=== PATIENT | female | born 1935 | race Caucasian/White ===

== ENCOUNTER → 2016-11-23 | Outpatient (CLI) | payer MEDICARE ==
[2016-11-23 12:40] LABS: Basophils # (A) 0.1 k/uL (0-0.2); Basophils % (A) 2 %; CH 31.2; CHCM 33.2; Eosinophils # (A) 0.2 k/uL (0-0.7); Eosinophils % (A) 4 %; HCT 41.3 % (34.0-46.0); HDW 2.97; HGB 13.9 gm/dL (11.4-16.0); Luc # (Auto) 0.22; Luc % (Auto) 4; Lymphocytes # (A) 1.9 k/uL (1.0-4.8); Lymphocytes % (A) 34 %; MCH 31.7 pg (25.0-35.0); MCHC 33.6 g/dL (31.0-37.0); MCV 94.3 fL (80.0-100.0); Mean Platelet Volume 6.8; Monocytes # (A) 0.3 k/uL (0-1.0); Monocytes % (A) 5 %; Neutrophils # (A) 2.9 k/uL (1.3-7.7); Neutrophils % (A) 52 %; RBC 4.38 m/uL (3.80-5.40); RDW 13.7 % (11.5-15.5); WBC 5.6 k/uL (3.8-10.6); WBC (Perox) 5.74
[2016-11-23 14:11] LABS: Erythrocyte Sedimentation Rate 14 mm/hr (0-20)
[2016-11-23 19:32] LABS: Alternaria alternata IgE <0.10 kU/L; Aspergillus fumagatus IgE <0.10 kU/L; Cat Epith & Dander IgE <0.10 kU/L; Cladosporian herbarum IgE <0.10 kU/L; Dermato. farinae IgE <0.10 kU/L; Maple (Box Elder) IgE <0.10 kU/L; Orchard Grs(Cocksfoot) IgE <0.10 kU/L; Ragweed,Common IgE <0.10 kU/L
== END ==
LOC: LABWHC1 12:18
PROVIDERS: ATTEND Internal Medicine
DX: J30.9 Allergic rhinitis, unspecified (principal); R05 Cough
CPT/HCPCS: 36415; 82785; 85025; 85652; 86003

== ENCOUNTER 2017-01-31 11:52 | Day surgery (SDC) | payer MEDICARE, OTHER ==
[2017-01-25 10:54] VITALS: BMI 24.0
[~2017-01-31 11:52] MED LIST: LACTATED RINGERS 1,000 ML IV SCH
[2017-01-31] MEDS: PHENYLEPHRINE 10% OPHTH DROPS 5 ML BTL OP ONE ×3 (12:18→12:36)
[2017-01-31] MEDS: CYCLOPENTOLATE 1% OPHTH SOLN 2 ML BTL OP ONE ×3 (12:21→12:38)
[2017-01-31 12:22] VITALS: RESP 16; TEMP 96.8
[2017-01-31] MEDS: KETOROLAC 0.5% OPHTH DROPS 5 ML BTL OP ONE ×3 (12:23→12:41)
[2017-01-31] MEDS ORDERED: LIDOCAINE 1% 20 ML VIAL (10MG/ML) FOR IV START INTRADERMA ONE (12:34)
[2017-01-31] MEDS ORDERED: PROPOFOL 10 MG/ML 20 ML VIAL IV ONE (13:06)
[2017-01-31] MEDS ORDERED: TETRACAINE 0.5% OPHTH (PF) DROPS 4 ML BTL RIGHT EYE ONE (13:09)
[2017-01-31] MEDS ORDERED: BALANCED SALT IRRIG SOLN COMB2 15 ML IRRIG.SOLN INTRAOCULA ONE (13:16)
[2017-01-31] MEDS ORDERED: HYALURONATE SODIUM INTRAOCULAR 1 EACH SYRINGE (10MG/ML) INTRAOCULA ONE ×3 (13:16)
[2017-01-31] MEDS ORDERED: EPINEPHrine (PF) 0.5 ML in BALANCED SALT IRRIG SOLN COMB2 500 ML IRRIGATION ONE (13:18)
--- NOTE | 2017-01-31 13:49 | P.OP ---
Date of Procedure: 01/31/17 Procedure(s) Performed: PREOPERATIVE DIAGNOSIS: Cataract, right eye. Glaucoma, right eye. POSTOPERATIVE DIAGNOSIS: Cataract, right eye. Glaucoma right eye. OPERATION: Phacoemulsification cataract, right eye. I-stent placement, right eye. DESCRIPTION OF PROCEDURE: The patient was taken to the preoperative holding area. Intravenous Propofol was given so as to bring about adequate sedation. The following mixture was given for local anesthesia: 5 mL of 2% lidocaine, 5 mL of 0.75% Marcaine, and 1 mL of Wydase. Approximately 4 mL was injected in the retrobulbar space of the surgical eye. Additional 1 mL was then directed to the temporal area of the surgical eye. This was performed to allow adequate neurological block of the facial muscles. The patient was revived and then taken into the operative room. The patient was prepped and draped in the usual sterile manner for the operative eye. A lid speculum was put into position. The conjunctiva was resected back from the limbus in the 12 o'clock position. Bleeding was controlled with electrocautery. A #69 blade was then used and a half-thickness scleral incision approximately 1-mm posterior to the limbus was made on bare sclera. This was shelved in the clear cornea using a crescent knife. The steep axis of astigmatism was marked using a pre-inked corneal marking device. Next a 15-degree blade was used to make a stab incision at the 3 o'clock position at the corneolimbal interface. Keratome blade was then used and the superior wound was extended into the anterior chamber. Viscoelastic was injected into the anterior chamber and to maintain its form. Next, a cystotome was used and a continuous anterior capsulotomy was made without difficulty. Using a gonioprism for guidance, an I-stent was next placed into the inferior angle of the eye. Hydrodissection using a blunt cannula and BSS was performed. Phaco probe was then employed and a groove extending from 12 to 6 o'clock in the lens was created. A Cruz wand was used through the stab incision so as to perform a divide and conquer technique. Next an irrigation aspiration probe was utilized and any residual cortex was removed from the eye. Again, viscoelastic was injected into the anterior chamber. An Dinesh toric posterior chamber lens implant was placed in the cartridge and injected into the anterior chamber without difficulty. The Sinskey hook was utilized to spin the lens into position and this was again performed without any difficulty. The irrigation and aspiration probe was again employed and any residual viscoelastic was removed from the eye. Then BSS was injected into the limbal stab incision and the anterior chamber re- inflated. The conjunctiva was reapproximated using electrocautery. One drop of 0.25% Timoptic was placed over the corneal along with TobraDex ophthalmic ointment. Two sterile patches and a Perez eye shield were taped into position. The patient was transported to the recovery room in stable condition. Pathology: none sent Condition: stable Disposition: same day
[2017-01-31 14:15] VITALS: BP 133/63; PULSE 62
[2017-01-31] MEDS ORDERED: TIMOLOL 0.5% OPHTH SOLN (PF) 0.2 ML DROPERETTE OP ONE (23:00)
[2017-01-31] MEDS ORDERED: GENTAMICIN/PREDNISOL AC OPHTH OINT 3.5GM OPHTHALMIC ONE (23:00)
[2017-01-31] MEDS ORDERED: BUPIVACAINE (PF) 0.75% 5 ML, LIDOCAINE 4% (PF) 5 ML, HYALURONIDASE, HUMAN RECOMB 150 UNIT MISCELLANE ONE ×3 (23:00)
== END 2017-01-31 14:43 | disposition home or self-care (01) ==
LOC: OR 11:52
PROVIDERS: ATTEND Ophthalmology
DX: H26.9 Unspecified cataract (principal); H40.9 Unspecified glaucoma; J30.2 Other seasonal allergic rhinitis; J44.9 Chronic obstructive pulmonary disease, unspecified; Z87.891 Personal history of nicotine dependence; Z79.899 Other long term (current) drug therapy; Z79.52 Long term (current) use of systemic steroids
CPT/HCPCS: 0191T; 66984

== ENCOUNTER 2017-04-26 11:12 | Day surgery (SDC) | payer MEDICARE ==
[~2017-04-26 11:12] MED LIST changes: +DEXAMETHASONE SOD PHOSPHATE 10 MG/ML 1 ML VIAL IV ONE; +DEXAMETHASONE SOD PHOSPHATE 4 MG/ML 1 ML VIAL IV ONE; +FAMOTIDINE 20 MG/2 ML VIAL IV ONE; +ONDANSETRON 4 MG/2 ML VIAL IVP ONE; +ceFAZolin 1,000 MG in DEXTROSE/WATER 1 50ML.BAG IV ONE
[2017-04-26] MEDS: OXYMETAZOLINE 0.05% NASL SPRAY 1 SPRAY BOTTLE EA NOSTRIL ONE ×5 (12:35→12:55)
[2017-04-26] MEDS ORDERED: MIDAZOLAM 2 MG/2 ML VIAL IV ONE (13:11)
[2017-04-26] MEDS ORDERED: LIDOCAINE 1% INJ 10MG/ML (20 ML MDV) ONE (13:54)
[2017-04-26] MEDS ORDERED: PHENYLEPHRINE-0.9% NACL SYG 1 MG/10 ML SYRINGE ONE (13:54)
[2017-04-26] MEDS ORDERED: PROPOFOL 10 MG/ML 20 ML VIAL IV ONE (13:54)
[2017-04-26] MEDS ORDERED: fentaNYL (PF) 50 MCG/ML 2 ML AMP ONE (13:54)
[2017-04-26] MEDS ORDERED: SUCCINYLCHOLINE CHLORIDE 100 MG/5 ML SYR IV ONE (13:54)
[2017-04-26] MEDS ORDERED: LIDOCAINE 1%-EPI 1:100,000 20 ML VIAL SUBMUCOSAL ONE ×3 (14:05→14:09)
--- NOTE | 2017-04-26 14:46 | P.OP ---
Date of Procedure: 04/26/17 Preoperative Diagnosis: Deviated nasal septum Chronic sinusitis Postoperative Diagnosis: Same Procedure(s) Performed: Septoplasty Bilateral endoscopic sinus surgery including bilateral maxillary antrostomy, left jan bullectomy, right anterior ethmoidectomy Anesthesia: EMMA Surgeon: Portillo Kwong Estimated Blood Loss (ml): 5 Pathology: other (Nasal septal bone and cartilage sinus contents) Condition: stable Disposition: PACU Indications for Procedure: This is a 81-year-old white female has chronic postnasal drainage and nasal airway obstruction with maxillary sinusitis noted on CT. Operative Findings: Nasal septum deviated to the right anteriorly to the left posteriorly maxillary sinus ostia obstructed bilaterally with mild mucosal thickening in the maxillary sinuses bilaterally, mild purulence right anterior ethmoid air cells, jan bullosa cell on the left Description of Procedure: Patient was brought in the operative suite and placed in a supine position. Patient underwent induction of general anesthesia with oral endotracheal intubation without difficulty. The patient was prepped and draped in usual aseptic fashion with the orbits in the operating field for monitoring throughout the case and computed tomography scan on th computer screen for review throughout the case also. 1% lidocaine with 1-200,000 epinephrine was infused submucosally both sides of the nasal septum as well as lateral nasal wall and anterior tips the middle turbinates bilaterally. This was left to work for 7 minutes vasoconstrictive effect. A left hemitransfixion incision was made with the mucoperichondrial and mucoperiosteal flap on left elevated. Bony cartilaginous junction was disarticulated mucoperiosteal flap on the right was elevated. Bony nasal septal deformities were removed Pinky forceps. An inferior cartilaginous strip was removed leaving a full 1.5 cm caudal strut. Checking intranasally this corrected the nasoseptal deformities and the hemitransfixion incision was closed with a running 4-0 chromic suture. Full 0 endoscopic examination is performed bilaterally. Being on the left middle turbinate was medialized. There was a jan bullosa cell noted and therefore this was opened with the microdebrider. Maxillary ostium was located with a ballpoint probe and infundibulotomy was performed followed by uncinectomy with the microdebrider. Maxillary ostium was enlarged at the expense of the anterior and posterior fontanelle taking care anteriorly not to injure the lacrimal bone. The sinus was evaluated with 30 endoscope. Attention was turned to the right where the middle turbinate was medialized with a for elevator. There was some mild purulence coming from the anterior ethmoid air cells. The maxillary sinus ostium was located with a ballpoint probe and infundibulotomy was performed followed by uncinectomy. The antrostomy was enlarged at the expense of the anterior and posterior fontanelle taking care anteriorly not to injure the lacrimal bone. The sinus was evaluated with a 30 endoscope. Due to the purulence coming from the anterior ethmoid air cells anterior ethmoidectomy was performed on the right. Once this was completed xerogel was placed in the middle meatus under direct visualization bilaterally. Bilateral Frazier airway splints coated bacitracin ointment were placed in nasal cavities and sutured trans-septally with a 4-0 Vicryl suture. The patient was then allowed to emerge from general anesthesia having tolerated procedure well was extubated in the operating suite and transferred postoperative recovery area in satisfactory.
[2017-04-26 14:54] VITALS: TEMP 97
[2017-04-26] MEDS: HYDROmorphone 0.5 MG/0.5 ML SYRINGE IVP PRN ×2 (15:11→15:19)
[2017-04-26 16:23] VITALS: BP 119/79; PULSE 71; RESP 16
== END 2017-04-26 16:59 | disposition home or self-care (01) ==
LOC: OR 11:12
PROVIDERS: ATTEND Otolaryngology
DX: J34.2 Deviated nasal septum (principal); J32.2 Chronic ethmoidal sinusitis; J32.0 Chronic maxillary sinusitis; J45.909 Unspecified asthma, uncomplicated; Z87.891 Personal history of nicotine dependence; Z79.2 Long term (current) use of antibiotics; Z79.1 Long term (current) use of non-steroidal anti-inflammatories (NSAID); Z79.51 Long term (current) use of inhaled steroids; Z79.52 Long term (current) use of systemic steroids; Z88.8 Allergy status to other drugs, medicaments and biological substances
CPT/HCPCS: 88305; 88300; 30520; 31267; 31254; J2250; J2405; J2001; J3010; J0690; J2370; J0330; J2704; J1170

== ENCOUNTER → 2021-02-25 | Outpatient (CLI) | payer MEDICARE ==
--- NOTE | 2021-02-26 15:21 | BD ---
EXAMINATION TYPE: Axial Bone Density DATE OF EXAM: 02/25/2021 COMPARISON: NONE CLINICAL HISTORY: disorder of bone Height: 5 FT 2 1/2 IN Weight: 136 FRAX RISK QUESTIONS: Alcohol (3 or more units per day): NO Family History (Parent hip fracture): NO Glucocorticoids (More than 3mos): NO (Ex: prednisone, prednisolone, methylprednisolone, dexamethasone, and hydrocortisone). History of Fracture in Adulthood: YES Secondary Osteoporosis: 1. Type 1 Diabetes: NO 2. Hyperthyroidism: NO 3. Menopause before 45: NO 4. Malnutrition: NO 5. Chronic liver disease: NO Rheumatoid Arthritis: NO Current Tobacco Use: NO RISK FACTORS HISTORY OF: Surgery to Spine/Hip(right/left)/Wrist (right/left): NO Family History of Osteoporosis: NO Active: YES Diet low in dairy products/other sources of calcium: NO Postmenopausal woman: TOTAL HYST AGE 52 Take estrogen and/or progesterone medications: NO Lost more than 2 inches in height since high school: NO Poor Health: GOOD Hyperparathyroidism: NO Adrenal Insufficiency: NO MEDICATIONS: Osteoporosis Medications:YES Which medication: EVISTA How Long: APPRX 25 YEARS Additional Medications: ANTIBIOTICS FOR CHRONIC BLADDER INFECTIONS, EVISTA, OMEPRAZOLE Additional History: EXAM MEASUREMENTS: Bone mineral densitometry was performed using the [employer] System. Bone mineral density as measured about the Lumbar spine is: ----- L1-L4(G/cm2): 0.922 T Score Values are as follows: ----- L2: -2.6 ----- L3: -2.1 ----- L4: -1.6 ----- L1-L4: -2.1 PREV DONE AT DRS OFFICE Bone mineral density about the R hip (g/cm2): 0.735 Bone mineral density about the L hip (g/cm2): 0.736 T Score values are as follows: -----R Neck: -2.2 -----L Neck: -2.2 -----R Total: -2.1 -----L Total: -2.0 PREV DONE AT DRS OFFICE IMPRESSION: osteopenia. NOTE: T-SCORE=SD OF THE YOUNG ADULT MEAN.
== END | disposition home or self-care (01) ==
LOC: RADBDWWP 13:18
PROVIDERS: ATTEND Family Medicine
DX: M85.80 Other specified disorders of bone density and structure, unspecified site (principal)
CPT/HCPCS: 77080